=== PATIENT | male | born 2000 | race African-American/Black ===

== ENCOUNTER 2019-11-03 08:06 | Emergency (ER) | payer MEDICAID, OTHER ==
[~2019-11-03] VITALS: Ht 172.7 cm; Wt 72.6 kg
[2019-11-03 08:32] VITALS: BP 124/74
== END 2019-11-03 09:49 | disposition home or self-care (01) ==
LOC: ER 08:06
DX: S70.11XA Contusion of right thigh, initial encounter (principal); V13.4XXA Pedal cycle driver injured in collision with car, pick-up truck or van in traffic accident, initial encounter; Y93.I9 Activity, other involving external motion; Y92.410 Unspecified street and highway as the place of occurrence of the external cause; Y99.8 Other external cause status